=== PATIENT | female | born 1945 | race Caucasian/White ===

== ENCOUNTER 2016-11-22 09:28 | Emergency (ER) | payer MEDICARE, OTHER ==
--- NOTE | 2016-11-22 09:46 | CT ---
CLINICAL HISTORY: 71-year-old female with transient speech "difficulties" starting at 0800 this morn ing, now improved. No peripheral focal motor abnormalities. No known trauma. SCAN TECHNIQUE: Volume acquisition of data from an emergency unenhanced CT scan of the head and brai n obtained with the patient lying supine on the Siemens multislice CT scanner [place], [place]. All data archived in the PACS system for storage, reformatting and study (bone/brain windows). INTERPRETATION: 1. 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 No sign of pathologic skeletal lesion, skull fracture, underlying brain contusion or epidural/subdural hematoma. 2. Symmetric cevallos-white matter pattern with underlying mirror-image normal ventricular system. No hy drocephalus. 3. No sign of supratentorial or posterior fossa mass lesion. Physiologic midline pineal and symmetri c choroid plexus calcifications. 4. Isolated tiny lacunar type infarcts in the basal ganglia left cerebral hemisphere. 5. No pathologic intracranial calcifications and no sign of acute intracerebral/intraventricular/sub arachnoid bleed. CONCLUSION: Microvascular ischemic changes basal ganglia left cerebral hemisphere (see above). No sign of intracranial mass, hydrocephalus or bleed.
--- NOTE | 2016-11-22 09:48 | EDM.PDOC ---
ED HPI GENERAL MEDICAL PROBLEM - General Chief Complaint: Neuro Symptoms/Deficits Stated Complaint: IN BY AMBULANCE Time Seen by Provider: 11/22/16 09:35 Source of Information: Reports: Patient, EMS, Family History Limitations: Reports: Other - History of Present Illness INITIAL COMMENTS - FREE TEXT/NARRATIVE: This 71 yo female patient was brought to the ED with difficulties with speech. The patient's mother reports the patient was normal last night. The patient reports she was feeling very normal this morning before she had her shower. At 0815, the patient began to have difficulties speaking and communicating. The patient reports no other current problems or concerns. The patient denies any pain or headaches. The patient denies any recent falls or trauma. The patient is currently living with and taking care of her elderly mother and lives an active lifestyle. Onset: Today Onset Date: 11/22/16 Onset Time: 08:15 Duration: Constant Location: Reports: Other (change in speech (patient reports a difficult time verbalizing thoughts)) Quality: Reports: Other Severity: Moderate Improves with: Reports: None Worsens with: Reports: None Associated Symptoms: Reports: Other - Related Data Allergies Allergy/AdvReac Type Severity Reaction Status Date / Time No Known Allergies Allergy Verified 11/22/16 09:44 Home Meds: Home Meds Aspirin [Halfprin] 81 mg PO BRK 11/22/16 [History] Lisinopril/Hydrochlorothiazide [Zestoretic 20-12.5 mg Tablet] 1 tab PO DAILY [History] Omeprazole Magnesium [Prilosec] 20 mg PO DAILY 11/22/16 [History] ED ROS GENERAL - Review of Systems Review Of Systems: ROS reveals no pertinent complaints other than HPI. ED EXAM, NEURO - Physical Exam Exam: See Below Exam Limited By: No Limitations General Appearance: Alert, WD/WN, Mild Distress, Obese Eye Exam: Bilateral Eye: EOMI, Normal Inspection, PERRL Ears: Normal External Exam, Normal Canal, Hearing Grossly Normal, Normal TMs Nose: Normal Inspection, Normal Mucosa, No Blood Throat/Mouth: Normal Inspection, Normal Lips, Normal Teeth, Normal Gums, Normal Oropharynx, Normal Voice, No Airway Compromise, Other (The patient has a difficult time communicating. The patient reports she knows what she wants to say, but is having a difficult time "getting the words out.") Respiratory/Chest: No Respiratory Distress, Lungs Clear, Normal Breath Sounds, No Accessory Muscle Use, Chest Non-Tender Cardiovascular: Normal Peripheral Pulses, Regular Rate, Rhythm, No Edema, No Gallop, No JVD, No Murmur, No Rub GI/Abdominal: Normal Bowel Sounds, Soft, Non-Tender, No Organomegaly, No Distention, No Abnormal Bruit, No Mass (Female) Exam: Deferred Rectal (Female) Exam: Deferred Neurological: Alert, Normal Mood/Affect, Normal Dorsiflexion, CN II-XII Intact, Normal Reflexes, Oriented x 3 Back Exam: Normal Inspection, Full Range of Motion, NT Extremities: Normal Inspection, Normal Range of Motion, Non-Tender, No Pedal Edema, Normal Capillary Refill Psychiatric: Anxious Skin Exam: Warm, Dry, Intact, Normal Color, No Rash Course - Vital Signs Last Recorded V/S: Last Vital Signs Temp 36.6 C 11/22/16 10:36 Pulse 72 11/22/16 10:36 Resp 16 11/22/16 10:36 BP 128/62 11/22/16 10:36 Pulse Ox 94 L 11/22/16 10:36 - Orders/Labs/Meds Orders: Active Orders 24 hr Category Date Time Status EKG Documentation Completion [RC] URGENT Care 11/22/16 09:30 Active UA W/MICROSCOPIC [URIN] Stat Lab 11/22/16 09:30 Uncollected Labs: Laboratory Tests 11/22/16 11/22/16 11/22/16 Range/Units 09:42 09:42 09:42 WBC 8.1 (5.0-10.0) 10^3/uL RBC 5.31 (4.2-5.4) 10^6/uL Hgb 15.4 (12.0-16.0) g/dL Hct 46.3 (37.0-47.0) % MCV 87.2 (80-100) fL MCH 29.0 (27.0-34.0) pg MCHC 33.3 (33.0-35.0) g/dL Plt Count 257 (150-450) 10^3/uL Neut % (Auto) 41.4 L (42.2-75.2) % Lymph % (Auto) 46.0 (20.5-50.1) % Meeker % (Auto) 9.4 H (2-8) % Eos % (Auto) 2.7 (1.0-3.0) % Baso % (Auto) 0.5 (0.0-1.0) % PT 9.4 (9.0-12.0) SEC INR 0.9 (0.9-1.2) Sodium (135-145) mmol/L Potassium (3.6-5.0) mmol/L Chloride (101-111) mmol/L Carbon Dioxide (21.0-31.0) mmol/L Anion Gap BUN (7-18) mg/dL Creatinine (0.6-1.3) mg/dL Est Cr Clr Drug Dosing mL/min Estimated GFR (MDRD) BUN/Creatinine Ratio Glucose (74-105) mg/dL Lactic Acid 2.2 (0.5-2.2) mmol/L Calcium (8.4-10.2) mg/dl Total Bilirubin (0.2-1.0) mg/dL AST (10-42) IU/L ALT (10-60) IU/L Alkaline Phosphatase (42-121) IU/L Troponin I (0.00-0.02) ng/ml Total Protein (6.7-8.2) g/dl Albumin (3.2-5.5) g/dl Globulin Albumin/Globulin Ratio 07/26/17 Range/Units 09:42 WBC (5.0-10.0) 10^3/uL RBC (4.2-5.4) 10^6/uL Hgb (12.0-16.0) g/dL Hct (37.0-47.0) % MCV (80-100) fL MCH (27.0-34.0) pg MCHC (33.0-35.0) g/dL Plt Count (150-450) 10^3/uL Neut % (Auto) (42.2-75.2) % Lymph % (Auto) (20.5-50.1) % Meeker % (Auto) (2-8) % Eos % (Auto) (1.0-3.0) % Baso % (Auto) (0.0-1.0) % PT (9.0-12.0) SEC INR (0.9-1.2) Sodium 144 (135-145) mmol/L Potassium 4.0 (3.6-5.0) mmol/L Chloride 104 (101-111) mmol/L Carbon Dioxide 28.0 (21.0-31.0) mmol/L Anion Gap 16.0 BUN 16 (7-18) mg/dL Creatinine 0.8 (0.6-1.3) mg/dL Est Cr Clr Drug Dosing 59.51 mL/min Estimated GFR (MDRD) > 60 BUN/Creatinine Ratio 20.00 Glucose 134 H (74-105) mg/dL Lactic Acid (0.5-2.2) mmol/L Calcium 9.3 (8.4-10.2) mg/dl Total Bilirubin 0.7 (0.2-1.0) mg/dL AST 34 (10-42) IU/L ALT 41 (10-60) IU/L Alkaline Phosphatase 51 (42-121) IU/L Troponin I < 0.02 (0.00-0.02) ng/ml Total Protein 6.6 L (6.7-8.2) g/dl Albumin 4.1 (3.2-5.5) g/dl Globulin 2.5 Albumin/Globulin Ratio 1.64 Meds: Medications Discontinued Medications Generic Name Dose Route Start Last Admin Trade Name Freq PRN Reason Stop Dose Admin Alteplase, Recombinant 9 mg 11/22/16 10:41 Activase IVPUSH 11/22/16 10:42 .BOLUS ONE Alteplase, Recombinant 81 mg 11/22/16 10:41 Activase IV 11/22/16 10:42 .INFUSION ONE - Re-Assessments/Exams Free Text/Narrative Re-Assessment/Exam: 11/22/16 11:09 An initial call was placed to [facility] in [place]. Reported information to Dr. Clayton (Neuro). She advised to start tPA and call [facility] in [place] for further assessment and treatment. Departure - Departure Time of Disposition: 11:02 Disposition: DC/Tfer to Acute Hospital 02 Condition: Critical Clinical Impression: Acute CVA (cerebrovascular accident) - Discharge Information Forms: Interfacility Transfer EMTALA Care Plan Goals: Discussed the history, examination, CT, EKG and lab results with Dr. Cuellar ( [facility]). Dr. Cuellar advised to start tPA and expedite transfer to [facility] in [place]. [facility] will transport the patient to [facility]. - My Orders Last 24 Hours: My Active Orders 11/22/16 09:30 EKG Documentation Completion [RC] URGENT UA W/MICROSCOPIC [URIN] Stat - Assessment/Plan Last 24 Hours: My Active Orders 11/22/16 09:30 EKG Documentation Completion [RC] URGENT UA W/MICROSCOPIC [URIN] Stat
[2016-11-22 10:10] LABS: CHLORIDE,CL 104 mmol/L (101-111); SODIUM,NA 144 mmol/L (135-145)
[2016-11-22 10:37] VITALS: BP 128/62
--- NOTE | 2016-11-29 09:31 | EKG ---
11/22/2016- ANDREWS PARADA - EKG per my reading shows sinus rhythm at a rate of 70 with inferior Q-waves. [facility] /[id number]
== END 2016-11-22 11:29 ==
LOC: DL.ED 09:28
DX: I63.9 Cerebral infarction, unspecified (principal); Z79.899 Other long term (current) drug therapy
CPT/HCPCS: 36415; 70450; 80053; 81001; 83605; 84484; 85025; 85610; 93005; 93010; 96365; 96376; 99285; J2997; 99284

== ENCOUNTER → 2018-09-13 | Outpatient (CLI) | payer MEDICARE, OTHER | LOC: DL.US 09:50 | PROVIDERS: ATTEND Internal Medicine | DX: R06.02 Shortness of breath (principal); I08.0 Rheumatic disorders of both mitral and aortic valves | CPT/HCPCS: 93306 ==